=== PATIENT | male | born 1990 | race Caucasian/White ===

== ENCOUNTER 2018-08-17 18:08 | Emergency (ER) | payer SELFPAY ==
--- NOTE | 2018-08-17 18:53 | EDM.PDOCBH ---
ED HPI GENERAL MEDICAL PROBLEM - General Chief Complaint: Drug or Alcohol Abuse Stated Complaint: DETOX Time Seen by Provider: 08/17/18 18:30 Source of Information: Reports: Patient History Limitations: Reports: No Limitations - History of Present Illness INITIAL COMMENTS - FREE TEXT/NARRATIVE: 28-year-old male who is addicted to methamphetamine for the past year and a half is here for clearance to [place]. He has not used in the past 2-3 days. He's been sleeping a lot the last 2 days. He has no specific physical complaints and is otherwise stable. He is on no daily medications, has no asthma , diabetes or chronic medical issues. Associated Symptoms: Reports: No Other Symptoms Lower Back Pain Score (Numeric/FACES): 6 - Related Data Allergies Allergy/AdvReac Type Severity Reaction Status Date / Time rofecoxib Allergy Hallucinati Verified 08/17/18 18:23 ons Home Meds: Home Meds NK [No Known Home Meds] 08/17/18 [History] Past Medical History HEENT History: Reports: Impaired Vision Musculoskeletal History: Reports: None Psychiatric History: Reports: Addiction, Anxiety, Depression - Infectious Disease History Infectious Disease History: Reports: Chicken Pox - Past Surgical History Head Surgeries/Procedures: Reports: None HEENT Surgical History: Reports: None Musculoskeletal Surgical History: Reports: Other (See Below) Other Musculoskeletal Surgeries/Procedures:: jaw surgery Social & Family History - Tobacco Use Smoking Status *Q: Current Every Day Smoker Years of Tobacco use: 10 Packs/Tins Daily: 0.2 Used Tobacco, but Quit: No Second Hand Smoke Exposure: No - Caffeine Use Caffeine Use: Reports: Energy Drinks - Recreational Drug Use Recreational Drug Use: Yes Drug Use in Last 12 Months: Yes Recreational Drug Type: Reports: Methamphetamine Recreational Drug Use Frequency: Daily ED ROS GENERAL - Review of Systems Review Of Systems: See Below Constitutional: Denies: Fever, Chills HEENT: Reports: No Symptoms Respiratory: Denies: Shortness of Breath, Cough Cardiovascular: Denies: Chest Pain GI/Abdominal: Denies: Abdominal Pain, Nausea, Vomiting Skin: Reports: No Symptoms Neurological: Reports: Other (Very fatigued) ED EXAM, BEHAVIORAL HEALTH - Physical Exam Exam: See Below Exam Limited By: No Limitations General Appearance: Alert, No Apparent Distress Eye Exam: Bilateral Eye: Normal Inspection Head: Atraumatic Respiratory/Chest: No Respiratory Distress, Lungs Clear Cardiovascular: Regular Rate, Rhythm GI/Abdominal: Non-Tender Extremities: Other (Extremities are thin but not cachectic) Neurological: Alert, Oriented x 3 Psychiatric: Depressed Mood, Flat Affect. No: Tearful Skin Exam: Warm, Dry COURSE, BEHAVIORAL HEALTH COMP - Course Vital Signs: Last Vital Signs Temp 95.8 F 08/17/18 18:24 Pulse 94 08/17/18 18:24 Resp 16 08/17/18 18:24 BP 135/70 08/17/18 18:24 Pulse Ox 100 08/17/18 18:24 Orders, Labs, Meds: Laboratory Tests 08/17/18 08/17/18 Range/Units 18:30 19:00 Urine Opiates Screen Negative (NEGATIVE) Ur Oxycodone Screen Negative (NEGATIVE) Urine Methadone Screen Negative (NEGATIVE) Ur Propoxyphene Screen Negative (NEGATIVE) Ur Barbiturates Screen Negative (NEGATIVE) Ur Tricyclics Screen Negative (NEGATIVE) Ur Phencyclidine Scrn Negative (NEGATIVE) Ur Amphetamine Screen Presumptive positive H (NEGATIVE) U Methamphetamines Scrn Presumptive positive H (NEGATIVE) Urine MDMA Screen Negative (NEGATIVE) U Benzodiazepines Scrn Negative (NEGATIVE) U Cocaine Metab Screen Negative (NEGATIVE) U Marijuana (THC) Screen Presumptive positive H (NEGATIVE) Ethyl Alcohol < 3 mg/dL Re-Assessment/Re-Exam: A urine drug screen was obtained as well as an EtOH. Patient will be transferred to [place] when lab results are available. Departure - Departure Time of Disposition: 20:00 Disposition: DC/Tfer to Other Condition: Good Clinical Impression: Methamphetamine addiction - Discharge Information Instructions: Stimulant Use Disorder-Methamphetamines Referrals: PCP,None [Primary Care Provider] - Forms: ED Department Discharge Care Plan Goals: Transfer to [place] for detox and initiation of treatment to methamphetamine addiction.
== END 2018-08-17 20:00 | disposition other institution (70) ==
LOC: JP.ED 18:08
DX: F15.20 Other stimulant dependence, uncomplicated (principal); F17.210 Nicotine dependence, cigarettes, uncomplicated; Z88.8 Allergy status to other drugs, medicaments and biological substances
CPT/HCPCS: 36415; 80305; 99284; G0480